=== PATIENT | female | born 1955 | race Caucasian/White ===

== ENCOUNTER 2021-02-09 00:57 | Day surgery (SDC) | payer MEDICARE, SELFPAY ==
[2021-01-28 09:35] VITALS: BMI 28.4
[2021-02-09 06:35] VITALS: BP 140/66; PULSE 80; RESP 16; TEMP 36.1; O2SAT 99
[2021-02-09 07:12] LABS: Glucose Point of Care 167 mg/dl (65-105)
[2021-02-09] MEDS: LACTATED RINGERS 1,000 ML 150 ML IV CONT (07:14)
--- NOTE | 2021-02-09 07:27 | PM.HPGS ---
History of Present Illness History of Present Illness Consent: Risks, benefits, and alternatives have been discussed and questions answered. Patient agrees to proceed with procedure. Chief complaint: positive cologuard Narrative: Vicky Curry is a 65 year old female Who is referred for colon cancer screening. Recent colo guard test was positive Review of Systems Review of Systems: All systems reviewed & are unremarkable except as noted in HPI and below PMFSH Past Medical History Medical History Diabetes Neuropathy Family History Family History Mother Diabetes mellitus Kidney disease Social History Social History Smoking packs per day: 0.5 Smoking cigarettes per day: 10.0 Years smoked: 45 Smoking pack-years: 22.50 Smoking status: Current every day smoker Tobacco type: cigarettes Second hand tobacco smoke exposure: No Alcohol intake: never Substance use: never Additional living arrangements comments: unknown Additional occupation/education comments: Disability Gender identity (if verbalized by the patient): Female Spiritual care concerns: No Agree to blood products: Yes Meds Home Medications and Allergies Home Medications Medication Instructions Recorded Confirmed Type glimepiride 1 mg tablet 1 mg PO QAM 01/13/21 02/09/21 History linagliptin 5 mg tablet 5 mg PO QAM 01/13/21 02/09/21 History omega-3 fatty acids 1,000 mg 2,000 mg PO DAILY cap 01/13/21 02/09/21 History capsule pioglitazone 30 mg tablet 30 mg PO DAILY 01/13/21 02/09/21 History rosuvastatin 20 mg tablet 20 mg PO DAILY 01/13/21 02/09/21 History Vitamin C with Zinc 1 cap BYMOUTH DAILY 01/28/21 02/09/21 History cholecalciferol (vitamin D3) 25 mcg PO DAILY 01/28/21 02/09/21 History [Vitamin D3] tramadol 50 mg BID PRN 01/28/21 02/09/21 History Allergies Allergy/AdvReac Type Severity Reaction Status Date / Time No Known Allergies Allergy Mild Verified 02/09/21 06:43 Vital Signs Vital Signs - 24 hr 02/09/21 06:35 Temperature 36.1 C L Pulse Rate 80 Respiratory Rate 16 Blood Pressure 140/66 Pulse Oximetry 99 Exam Resp: Auscultation: clear to auscultation bilaterally Cardio: Rate: regular rate Rhythm: regular rhythm GI: GI Palp: Yes Soft to palpation and No Tenderness to palpation present (GI) Assessment and Plan Assessment and plan (1) Colon cancer screening: Code(s): Z12.11 - Encounter for screening for malignant neoplasm of colon Status: Acute Assessment and Plan: Colonoscopy with possible biopsy or polypectomy or cautery or injection of substances.
--- NOTE | 2021-02-09 07:50 | WPDANESEPPF ---
Anes - Initial Pre Proc Eval Procedure: Operation Date: 02/09/21 08:00 Proposed Procedures p Colonoscopy - Alonso De La Rosa MD Date/Time: 02/09/21 07:50 Surgeon: Alonso De La Rosa MD Pre Op Diagnosis: positive cologuard Patient Data Age: 65 Gender: F Height: 1.68 m Weight: 82.2 kg Last Vital Signs Temp 96.9 F L 02/09/21 06:35 Pulse 80 02/09/21 06:35 Resp 16 02/09/21 06:35 BP 140/66 02/09/21 06:35 Pulse Ox 99 02/09/21 06:35 Allergies Allergy/AdvReac Type Severity Reaction Status Date / Time No Known Allergies Allergy Mild Verified 02/09/21 06:43 Home Medications Medication Instructions Recorded Confirmed Type glimepiride 1 mg tablet 1 mg PO QAM 01/13/21 02/09/21 History linagliptin 5 mg tablet 5 mg PO QAM 01/13/21 02/09/21 History omega-3 fatty acids 1,000 mg 2,000 mg PO DAILY cap 01/13/21 02/09/21 History capsule pioglitazone 30 mg tablet 30 mg PO DAILY 01/13/21 02/09/21 History rosuvastatin 20 mg tablet 20 mg PO DAILY 01/13/21 02/09/21 History Vitamin C with Zinc 1 cap BYMOUTH DAILY 01/28/21 02/09/21 History cholecalciferol (vitamin D3) 25 mcg PO DAILY 01/28/21 02/09/21 History [Vitamin D3] tramadol 50 mg BID PRN 01/28/21 02/09/21 History Laboratory Tests 02/09/21 07:05 POC Capillary Glucose 167 mg/dl H mg/dl (65-105) Patient hx anesthesia problems: none Family hx anesthesia problems: none PMFSH Past Medical History Medical History Diabetes Neuropathy Family History Family History Mother Diabetes mellitus Kidney disease Social History Social History Smoking packs per day: 0.5 Smoking cigarettes per day: 10.0 Years smoked: 45 Smoking pack-years: 22.50 Smoking status: Current every day smoker Tobacco type: cigarettes Second hand tobacco smoke exposure: No Alcohol intake: never Substance use: never Additional living arrangements comments: unknown Additional occupation/education comments: Disability Gender identity (if verbalized by the patient): Female Spiritual care concerns: No Agree to blood products: Yes Anes - Eval Final PreProcedure Day of Procedure 02/09/21 07:50 Patient weight: overweight Heart: regular rate and rhythm Lungs: clear to auscultation Airway: Mallampati scale class II Neurological: alert and oriented Last oral intake: >/= 8 hours ASA classification: III Emergent: no Anesthetic plan: proceed Anesthesia type and monitoring: general GIVS and standard monitoring Informed Consent: The patient's anesthetic plan and its attendant risks and benefits were discussed with the patient/family/POA. Questions were solicited and answers provided to the satisfaction of the patient/family/POA.
[2021-02-09 08:30] VITALS: BP 85/45; PULSE 71; RESP 20; O2SAT 100
[2021-02-09 08:40] VITALS: BP 113/62; PULSE 66; RESP 19; O2SAT 100
[2021-02-09 08:50] VITALS: BP 126/46; PULSE 72; RESP 20; O2SAT 99
== END 2021-02-09 09:00 | disposition home or self-care (01) ==
PROVIDERS: PCP Physician Assistant; Visit Provider Internal Medicine Gastroenterology
PROC: 0DJD8ZZ Inspection of Lower Intestinal Tract, Via Natural or Artificial Opening Endoscopic (ICD-10-PCS; CPT 45378; principal; 2021-02-09 08:00)
DX: Z12.11 Encounter for screening for malignant neoplasm of colon (principal); R19.5 Other fecal abnormalities; K64.8 Other hemorrhoids; K57.30 Diverticulosis of large intestine without perforation or abscess without bleeding; D12.2 Benign neoplasm of ascending colon; K63.5 Polyp of colon; E11.40 Type 2 diabetes mellitus with diabetic neuropathy, unspecified; F17.210 Nicotine dependence, cigarettes, uncomplicated
CPT/HCPCS: 45380; 45385; 82948; 88305; J2704; J7120